=== PATIENT | female | born 1935 | race Caucasian/White ===

== ENCOUNTER 2018-03-29 11:56 | Inpatient (IN) | payer OTHER ==
[~2018-03-29] VITALS: Ht 175.3 cm; Wt 86.2 kg
[2018-04-11] MEDS ORDERED: XARELTO10 MG PO (14:16)
[2018-04-11] MEDS ORDERED: TRAM1TAB98 PO (14:17)
== END 2018-04-11 19:06 | disposition home or self-care (01) | DRG 965 ==
LOC: ER 11:56 → SURH 03-30 01:42
PROC: 2W6NX0Z Traction of Right Upper Leg using Traction Apparatus (ICD-10-PCS; principal; 2018-03-30)
PROC: B246ZZZ Ultrasonography of Right and Left Heart (ICD-10-PCS; 2018-03-30)
DX: S32.491A Other specified fracture of right acetabulum, initial encounter for closed fracture (principal); S72.091A Other fracture of head and neck of right femur, initial encounter for closed fracture; S32.591A Other specified fracture of right pubis, initial encounter for closed fracture; W01.0XXA Fall on same level from slipping, tripping and stumbling without subsequent striking against object, initial encounter; Y93.89 Activity, other specified; Y92.89 Other specified places as the place of occurrence of the external cause; Y99.8 Other external cause status; I10 Essential (primary) hypertension; E11.9 Type 2 diabetes mellitus without complications

== ENCOUNTER 2018-05-07 15:38 | Inpatient (IN) | payer OTHER ==
[~2018-05-07] VITALS: Ht 160 cm; Wt 81.6 kg
[~2018-05-07 15:38] MED LIST: TRAM1TAB98 PO; XARELTO10 MG PO
== END 2018-05-17 11:33 | disposition expired | DRG 570 ==
LOC: ER 15:38 → SEC-K 05-08 06:25 → SURH 05-08 06:25
PROC: B54DZZZ Ultrasonography of Bilateral Lower Extremity Veins (ICD-10-PCS; 2018-05-08)
PROC: CP1Z1ZZ Planar Nuclear Medicine Imaging of Musculoskeletal System, All using Technetium 99m (Tc-99m) (ICD-10-PCS; 2018-05-08)
PROC: 8E0ZXY6 Isolation (ICD-10-PCS; 2018-05-08)
PROC: CW1NLZZ Planar Nuclear Medicine Imaging of Whole Body using Gallium 67 (Ga-67) (ICD-10-PCS; 2018-05-12)
PROC: 0JB70ZZ Excision of Back Subcutaneous Tissue and Fascia, Open Approach (ICD-10-PCS; principal; 2018-05-15)
PROC: 0BH17EZ Insertion of Endotracheal Airway into Trachea, Via Natural or Artificial Opening (ICD-10-PCS; 2018-05-17)
DX: L89.153 Pressure ulcer of sacral region, stage 3 (principal); N39.0 Urinary tract infection, site not specified; I10 Essential (primary) hypertension; E11.9 Type 2 diabetes mellitus without complications; Z74.01 Bed confinement status; B96.29 Other Escherichia coli [E. coli] as the cause of diseases classified elsewhere; B96.89 Other specified bacterial agents as the cause of diseases classified elsewhere; B96.6 Bacteroides fragilis [B. fragilis] as the cause of diseases classified elsewhere; I46.8 Cardiac arrest due to other underlying condition; B96.1 Klebsiella pneumoniae [K. pneumoniae] as the cause of diseases classified elsewhere; I87.2 Venous insufficiency (chronic) (peripheral)